=== PATIENT | male | born 1945 | race Caucasian/White ===

== ENCOUNTER 2024-05-09 05:31 | Emergency (ER) | payer MEDICARE, SELFPAY ==
[2024-05-09 05:41] VITALS: BP 175/86
[2024-05-09 05:55] VITALS: BP 184/76
[2024-05-09 06:00] VITALS: BP 163/76
--- NOTE | 2024-05-09 06:01 | ED.GENMED ---
History of Present Illness
<Gómez Cifuentes MD, Resident - Last Filed: 05/09/24 12:41>
General
Chief Complaint: Chest Pain
Source: patient
Time Seen by Provider: 05/09/24 05:59
History of Present Illness
History of Present Illness:
79-year-old, Mr. Nicholas Silveira presented with past medical history significant for TIA, CAD/CABG 2005, hypertension, hyperlipidemia presented to the ER reporting chest pain that started yesterday. Patient reports the pain started at 2:30 AM in the
morning yesterday, he took Pepcid thinking that it must be because of indigestion, but it did not help with the chest pain. Patient reports the pain is constant in the presternal area, 5/10 and it radiates to the scapula intermittently. Patient
reports that he notices the pain more during lying down position and when the surroundings are quiet. Patient reports that in the morning today the pain woke him up from his sleep. Patient reports sometimes he had nausea along with the pain but no
vomiting. Patient denies diaphoresis, lightheadedness, visual changes, SOB, palpitations, abdominal pain, bladder/bowel disturbances. No history of recent travel. Patient reports he is retired, but he is physically active, exercises every day,
did mention that he did overdo the day before he had chest pain. Patient also reports that he was treated for cellulitis of his right lower extremity in the capell[place] area 2 weeks ago with a 7-day course of antibiotics.
Phy Exam
<Gómez Cifuentes MD, Resident - Last Filed: 05/09/24 12:41>
Physical Exam
Physical Exam:
GEN: Well appearing, NAD, WDWN
Eyes: PERRLA, EOMs intact, no scleral icterus
HENT: NCAT, oral mucosa moist, no JVD, no cervical adenopathy.
Lungs: CTAB, no wheezes, rales, rhonchi, normal chest wall excursion
Cardiac: RRR, S1-S2+, no peripheral edema. Radial pulses 2+ bilat
Abdomen: S, NT, ND, NABS, no masses or hepatosplenomegaly
Neuro: AO x 3, no focal deficits to BUE/BLE, normal sensation throughout
Skin: No rashes, petechiae. Normal color, no pallor or jaundice.
Psych: Calm, cooperative, proper hygiene
Scores
<Gómez Cifuentes MD, Resident - Last Filed: 05/09/24 12:41>
Heart Score for Chest Pain Patients
Heart Score for Chest Pain Patients: 4
Heart Score Risk: 20.3% MACE over next 6 weeks
<Eduardo Petersen MD - Last Filed: 05/09/24 07:13>
Heart Score for Chest Pain Patients
STEMI patient?: No
History: Slightly or Non-Suspicious
ECG: Normal
Age: >/= 65 years
Risk Factors: >/= 3 Risk Factors or History of CAD
Troponin: </= Normal Limit
Heart Score for Chest Pain Patients: 4
Heart Score Risk: 20.3% MACE over next 6 weeks
Course
<Gómez Cifuentes MD, Resident - Last Filed: 05/09/24 12:41>
Orders/Labs/Results
Orders:
Orders
05/09/24 05:35
EKG [Electrocardiogram (*1)] Urgent
Reason for Study: Chest Pain
EKG- Treatment ONCE
05/09/24 06:12
Complete Blood Count/With Diff Urgent
05/09/24 06:13
Comprehensive Metabolic Panel Urgent
Troponin I Urgent
05/09/24 06:31
Ketorolac [Toradol] 15 mg IV NOW STA
05/09/24 06:32
CR Chest - 2 Views Urgent
Comment:
Reason For Exam: chest pain
05/09/24 06:57
D-Dimer Urgent
Abnormal Lab Results
05/09/24 05/09/24
06:12 06:13
RBC 4.25 L 10^6/uL
(4.70-6.10)
Hct 38.8 L %
(39.0-52.0)
MCH 32.0 H pg
(27.0-31.0)
AST 62 H U/L
(17-59)
ALT 65 H U/L
(0-50)
05/09/24 06:12
05/09/24 06:13
Vital Signs
Initial and Last Documented VS:
Initial Vital Signs
Pulse Resp BP Pulse Ox
71 18 175/86 98
05/09/24 05:41 05/09/24 05:41 05/09/24 05:41 05/09/24 05:41
Last Documented Vital Signs
Temp Pulse Resp BP Pulse Ox
97.6 F 69 16 161/67 98
05/09/24 07:24 05/09/24 07:24 05/09/24 07:24 05/09/24 07:24 05/09/24 07:24
<Eduardo Petersen MD - Last Filed: 05/09/24 07:13>
Orders/Labs/Results
Orders:
Orders
05/09/24 05:35
EKG [Electrocardiogram (*1)] Urgent
Reason for Study: Chest Pain
EKG- Treatment ONCE
05/09/24 06:12
Complete Blood Count/With Diff Urgent
05/09/24 06:13
Comprehensive Metabolic Panel Urgent
Troponin I Urgent
05/09/24 06:31
Ketorolac [Toradol] 15 mg IV NOW STA
05/09/24 06:32
CR Chest - 2 Views Urgent
Comment:
Reason For Exam: chest pain
05/09/24 06:57
D-Dimer Urgent
Abnormal Lab Results
05/09/24 05/09/24
06:12 06:13
RBC 4.25 L 10^6/uL
(4.70-6.10)
Hct 38.8 L %
(39.0-52.0)
MCH 32.0 H pg
(27.0-31.0)
AST 62 H U/L
(17-59)
ALT 65 H U/L
(0-50)
05/09/24 06:12
05/09/24 06:13
Vital Signs
Initial and Last Documented VS:
Initial Vital Signs
Pulse Resp BP Pulse Ox
71 18 175/86 98
05/09/24 05:41 05/09/24 05:41 05/09/24 05:41 05/09/24 05:41
Last Documented Vital Signs
Temp Pulse Resp BP Pulse Ox
97.6 F 69 16 161/67 98
05/09/24 07:24 05/09/24 07:24 05/09/24 07:24 05/09/24 07:24 05/09/24 07:24
<Gómez Cifuentes MD, Resident - Last Filed: 05/09/24 12:41>
*Critical Care Note
Total Time (30-74mins, 75-104mins- exclusive of procedures): Not Applicable
ED Attending Note
<Gómez Cifuentes MD, Resident - Last Filed: 05/09/24 12:41>
-
Portions of this chart may have been created with voice recognition software.� Occasional wrong word or��sound alike� substitutions may have occurred due to the inherent limitations of voice recognition software.
<Eduardo Petersen MD - Last Filed: 05/09/24 07:13>
ED Attending Note
Patient seen and examined by attending physician: Yes
ED Attending Note:
Patient with history of CAD, presents to ED secondary to persistent left-sided chest pain over the past 24 hours. Patient states that he woke up at 24 hours ago, with what he described as 'bad indigestion', which was relieved after 2 doses of
Pepcid. However, at the same time, patient started to experience left-sided chest pain, radiating to his left scapula. Chest pain described as sharp, worse with certain movements, without any associated shortness of breath, nausea, or shortness of
breath. Patient states that when he had MT, his symptoms were completely different, including diaphoresis and more diffuse pain with nausea. Patient recently saw his rotary pump operator as an outpatient for routine visit, including normal echocardiogram.
Denies recent travel or surgery. Denies leg pain or swelling. Of note, 1 day before onset of his symptoms, patient does report increasing his exercise regimen, which includes using pulleys, overhead and [id number], as well as curling. Patient
does report going up on weights on that day.
Physical Exam
General: no apparent distress, not acutely ill. afebrile
Head: nc/at. eomi
Neck: supple. no meningeal signs.
Heart: s1/s2 regular rate and rhythm, no murmur. equal radial pulses.
Lungs: no acute respiratory distress. clear bilaterally. chest wall nontender to palpation.
Abdomen: normal bowel sounds. not tender.
Neuro: alert and oriented. no focal neurological deficits
Skin: no rash
Psychiatric: well kept. interactive and cooperative
Extremities: no edema. no calf tenderness.
History and exam inconsistent with ACS. Symptoms likely musculoskeletal in etiology, as it was preceded by increased exercise regimen. Patient with an unremarkable workup in ED, including blood work, EKG, chest x-ray. Patient will be advised to
refrain from any exercise short-term, along with use of Tylenol/Motrin for symptomatic relief, as well as follow-up with his primary rotary pump operator. Advised to return to ED with worsening symptoms.
Discharge Plan
Departure
Patient Disposition: Home (Routine Discharge)
Date of Disposition: 05/09/24
Time of Disposition: 07:35
Patient with high blood pressure during this ER visit?: Yes
Condition: Good
Discharge Problem:
Costochondritis
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
Prescriptions:
No Action
clopidogrel [Plavix] 75 mg Tablet
75 mg PO DAILY
allopurinol 300 mg Tablet
300 mg PO DAILY
CoQ-10 400 mg
400 mg PO DAILY
Leqvio 284 mg
284 mg SC [id number]
Synthroid 50 mcg
50 mcg PO DAILY
finasteride 5 mg
5 mg PO DAILY
losartan 100 mg
100 mg PO DAILY
metoprolol tartrate 25 mg
25 mg PO BID
pravastatin 40 mg
40 mg PO DAILY
Activity Restrictions/Additional Instructions:
Advised to stop exercises and workouts in the gym.
Take Tylenol as required for pain.
Follow-up with rotary pump operator.
Follow-up with the primary care physician within a week.
Interventions
Interventions:
*Risk Screen - Suicide Last Done: 05/09/24 05:41
*General Assessment Last Done: 05/09/24 05:41
*Neglect/Abuse Screening Last Done: 05/09/24 05:41
ED- Fall Risk Assessment Last Done: 05/09/24 05:41
*ED COVID-19 Vaccine History Last Done: 05/09/24 05:41
*Nursing Disposition Last Done: 05/09/24 07:57
ED- Cardiac Assessment Last Done: 05/09/24 06:27
Discharge Date and Time
Discharge Date/Time: 05/09/24 07:57
Print Language: ARABIC
[2024-05-09 06:28] LABS: % Basophils 0.6 % (0-2); % Eosinophils 1.3 % (0-6); % Immature Granulocytes 0.3 % (0-0.5); % Lymphocytes 37.9 % (20.5-51.1); % Monocytes 7.8 % (1.7-9.3); % Neutrophils 52.1 % (42.2-75.2); Absolute Eosinophils 0.1 10^3/uL (0-0.7); Absolute Lymphocytes 2.7 10^3/uL (1.2-3.4); Absolute Monocytes 0.6 10^3/uL (0.1-0.6); Absolute Neutrophils 3.7 10^3/uL (1.4-6.5); Hematocrit 38.8 % (39.0-52.0); Hemoglobin 13.6 g/dL (13.0-18.0); Mean Corp Hgb Conc. 35.1 g/dL (33.0-37.0); Mean Corpuscular Volume 91.3 fL (80.0-94.0); Mean Platelet Volume 9.1 fL (7.4-10.4); Nucleated Red Blood Cells % 0 % (-); Platelet Count 261 10^3/uL (130-400); Red Blood Cell Count 4.25 10^6/uL (4.70-6.10); Red Cell Dist. Width 12.8 % (11.5-14.5)
--- NOTE | 2024-05-09 06:29 | EDRN ---
Pt states that his pain started @ 02:30 on 05/07 which the thought was GERD and treated it with Pepcid. He also mentions that he worked out more than he normally does. He is unable describe the pain other that its there and it sometime radiates to
his scapular area. I found the pain to be non-reproducible upon palp, lunch clear, no sob
[2024-05-09 06:38] LABS: ALT (SGPT) 65 U/L (0-50); AST (SGOT) 62 U/L (17-59); Albumin 4.3 g/dl (3.5-5.0); Alkaline Phosphatase 56 U/L (38-126); Blood Urea Nitrogen 14 mg/dl (9-20); Calcium 9.6 mg/dl (8.4-10.2); Carbon Dioxide 25 mmol/L (22-30); Chloride 105 mmol/L (98-107); Glucose 99 mg/dl (70-99); Potassium 4.4 mmol/L (3.5-5.1); Sodium 141 mmol/L (135-145); Total Bilirubin 0.6 mg/dl (0.2-1.3); Total Protein 6.7 g/dl (6.3-8.2); eGFR > 60.00
[2024-05-09 06:50] LABS: Troponin I < 0.012 ng/ml
[2024-05-09] MEDS: TORADOL 15 MG IV (06:58)
--- NOTE | 2024-05-09 07:00 | EDRN ---
the pt was received from program evaluation consultant RN, the pt is resting in stretcher in the lowest position, side rails up x2, call lua within reach, HOB elevated, no s/s of distress, no c/o SOB, c/o chest pain currently 5/10 left sided chest pain that is
sharp/cramping and non radiating, Toradol administered per providers orders, D dimer drawn and sent, VS WNL, will continue to monitor the pt closely
[2024-05-09 07:14] VITALS: BMI 26.6
[2024-05-09 07:16] LABS: D-Dimer 0.35 ug/mlFEU (0.00-0.50)
[2024-05-09 07:24] VITALS: BP 161/67
--- NOTE | 2024-05-09 07:55 | EDRN ---
discharge instructions given to the pt and discharge teaching provided to the pt by this RN and provider, the pt verbally stated that he understood
== END 2024-05-09 07:57 | disposition home or self-care (01) ==
LOC: EMR 05:31
PROVIDERS: Student in an Organized Health Care Education/Training Program; EMERGENCY PHYSICIAN Emergency Medicine; FAMILY PHYSICIAN Family Medicine
DX: M94.0 Chondrocostal junction syndrome [Tietze] (principal); R11.0 Nausea; I10 Essential (primary) hypertension; I25.10 Atherosclerotic heart disease of native coronary artery without angina pectoris; E78.5 Hyperlipidemia, unspecified; Z86.73 Personal history of transient ischemic attack (TIA), and cerebral infarction without residual deficits; Z95.1 Presence of aortocoronary bypass graft; Z88.8 Allergy status to other drugs, medicaments and biological substances
CPT/HCPCS: 99284; 96374; 71046; 80053; 84484; 85025; 85379; 93005